=== PATIENT | male | born 2000 | race Caucasian/White ===

== ENCOUNTER 2025-03-04 09:22 | Emergency (ER) | payer OTHER, SELFPAY ==
[2025-03-04 09:37] VITALS: BP 149/88; PULSE 133; RESP 12; TEMP 37.4; O2SAT 94; BMI 24.4
--- NOTE | 2025-03-04 09:44 | DI.RAD.S_ITS ---
PROCEDURE: XR CHEST 1V INDICATIONS: cough fever flu TECHNIQUE: One view of the chest was acquired. COMPARISON: None. FINDINGS: Surgical changes and devices: None. Lungs and pleura: Lungs are clear. No pleural effusions or pneumothorax. Mediastinum: Mediastinal contours appear normal. Heart size is normal. Bones and chest wall: No suspicious bony lesions. Overlying soft tissues appear unremarkable. IMPRESSION: No acute cardiopulmonary abnormality is seen. Dictated by: Khang Callejas M.D. on 03/04/2025 at 10:09 Approved by: Khang Callejas M.D. on 03/04/2025 at 10:09
[2025-03-04] MEDS: SODIUM CHLORIDE 0.9% 1,000 ML 1000 ML IV (09:54)
[2025-03-04 10:02] LABS: Add Manual Diff / Slide Review YES; Hematocrit 39.6 % (41-53); Hemoglobin 13.8 g/dL (13.5-17.5); Mean Corpuscular HGB Conc 35.0 % (30-36); Mean Corpuscular Hemoglobin 29.4 PG (26-34); Mean Corpuscular Volume 84.0 fL (80-100); Platelet Count 307 X10^3/uL (150-400)
[2025-03-04 10:15] LABS: Lactate (Lactic Acid) 1.6 mmol/L (0.7-2.1)
[2025-03-04 10:16] LABS: Alanine Aminotransferase 14 IU/L (<50); Albumin 4.6 g/dL (3.5-5.0); Albumin Globulin Ratio 1.2 (1.0-2.8); Alkaline Phosphatase 56 U/L (38-126); Blood Urea Nitrogen 11 mg/dL (9-20); Calcium 8.9 mg/dL (8.4-10.2); Carbon Dioxide 22 mmol/L (22-32); Chloride 103 mmol/L (98-107); Creatine Kinase 50 U/L (55-170); Estimated Glomerular Filt Rate > 60 mL/min (>60); Globulin 3.7 g/dL (1.7-4.1); Glucose 117 mg/dL (70-99); HEMOLYSIS 18 (0-50); Potassium 3.5 mmol/L (3.4-5.1); Sodium 140 mmol/L (137-145); Total Protein 8.3 g/dL (6.3-8.2)
[2025-03-04 10:26] VITALS: PULSE 103
[2025-03-04 10:36] LABS: Influenza A - CEPHEID Flu A POSITIVE (NEGATIVE); Influenza B - CEPHEID Flu B NEGATIVE (NEGATIVE)
[2025-03-04 10:38] LABS: COVID-19 CEPHEID 4-PLEX PCR Negative (Negative)
[2025-03-04 11:23] LABS: Band Neutrophils Percent 2.0 % (3-7); Basophils Percent Manual 1.0 % (0-1); Eosinophils Percent Manual 1.0 % (2-4); Lymphocytes Percent Manual 14.0 % (25-45); Monocytes Percent Manual 9.0 % (2-11); Neutrophils Absolute Manual 5175 /uL (3000-5900); RBC Morphology Normal Morphology; Segmented Neutrophils Percent 73.0 % (38-70); Total Cells Counted 100
[2025-03-04] MEDS: KETOROLAC 30 MG/ML VIAL IV (11:28)
--- NOTE | 2025-03-04 11:30 | ED.URI ---
HPI - URI/Sore Throat General Chief Complaint: Fever Stated Complaint: Flu for 3 day- temp 103 Time Seen by Provider: 03/04/25 09:44 Source: patient Mode of arrival: Ambulatory History of Present Illness HPI Narrative: Patient is a healthy 25-year-old male presenting today with a fever. He reports that his roommate tested positive for the flu. He has had 3 days of headache sore throat fever and some nausea. No diarrhea no significant shortness of breath or cough. He was worried because his temp at home today was 103. He took Tylenol at home but wanted to come in to be sure. He is noted to be tachycardic but not hypotensive or hypoxic. Related Data Allergies Allergy/AdvReac Type Severity Reaction Status Date / Time No Known Drug Allergies Allergy Verified 03/04/25 09:37 Patient History Social History Smoking Status: Never smoker Smoking Status: Never smoker Exam Initial Vital Signs Initial Vital Signs: Vital Signs Temperature 99.3 F 03/04/25 09:37 Pulse Rate 133 H 03/04/25 09:37 Respiratory Rate 12 03/04/25 09:37 Blood Pressure 149/88 H 03/04/25 09:37 Pulse Oximetry 94 03/04/25 09:37 Oxygen Delivery Method Room Air 03/04/25 09:37 GENERAL: Alert pleasant well-appearing 25-year-old male and in no acute distress. HEENT: Head atraumatic,EOMI, pupils reactive, face symmetric, moist mucous membranes CARDIOVASCULAR: Regular rate and rhythm without murmurs, rubs or gallops. RESPIRATORY: Breath sounds equal bilaterally, no wheezes rales or rhonchi. ABDOMEN: Soft, nontender. Normoactive bowel sounds all 4 quadrants. No guarding or rebound. EXTREMITIES: Normal range of motion, no clubbing or edema. Neurovascularly intact NEUROLOGICAL: Alert and oriented x4.Normal gait and speech. Cranial nerves II through XII grossly intact. SKIN: Warm, dry, no laceration, no petechiae, no rashes or lesions. Course Orders Ordered: ED Orders 03/04/25 09:44 Chest [XR chest 1V] Stat 03/04/25 09:45 Covid-19 + FLU A/B + RSV - PCR Stat 03/04/25 09:50 CBC Auto Diff [Complete Blood Count AUTO DIFF] Stat CMP [Comprehensive Metabolic Panel] Stat CPK [Creatine Kinase] Stat Lactate (Lactic Acid) Stat Discontinued Medications Sodium Chloride (Normal Saline 0.9%) 1,000 mls @ 1,000 mls/hr IV BOLUS ONE Stop: 03/04/25 10:43 Last Infusion: 03/04/25 11:28 Dose: Infused Documented By: Admin: 03/04/25 09:54 Dose: 1,000 mls/hr Documented By: DANIEL Ketorolac Tromethamine (Ketorolac 30 Mg/Ml Vial) 30 mg IV NOW ONE Stop: 03/04/25 11:15 Last Admin: 03/04/25 11:28 Dose: 30 mg Documented By: WANDA Vital Signs Vital signs: Vital Signs - 8 hr 03/04/25 09:37 03/04/25 10:26 03/04/25 11:55 Temperature 99.3 F 99.8 F H Pulse Rate 133 H 103 H 110 H Respiratory Rate 12 12 Blood Pressure 149/88 H 133/64 Pulse Oximetry 94 95 Oxygen Delivery Method Room Air Room Air MDM - URI/Sore Throat Lab Data 03/04/25 09:50 03/04/25 09:50 Labs: Lab Results 03/04/25 03/04/25 Range/Units 09:45 09:50 WBC 6.9 (4.5-11.0) X10^3/uL RBC 4.71 (4.5-5.9) X10^6/uL Hgb 13.8 (13.5-17.5) g/dL Hct 39.6 L (41-53) % MCV 84.0 (80-100) fL MCH 29.4 (26-34) PG MCHC 35.0 (30-36) % RDW 13.2 (11.6-14.8) % Plt Count 307 (150-400) X10^3/uL Neut % (Auto) Not Reportable Lymph % (Auto) Not Reportable [place] % (Auto) Not Reportable Eos % (Auto) Not Reportable Baso % (Auto) Not Reportable Lymph # (Auto) Not Reportable [place] # (Auto) Not Reportable Baso # (Auto) Not Reportable Total Counted 100 Seg Neutrophils % 73.0 H (38-70) % Band Neutrophils % 2.0 L (3-7) % Lymphocytes % (Manual) 14.0 L (25-45) % Monocytes % (Manual) 9.0 (2-11) % Eosinophils % (Manual) 1.0 L (2-4) % Basophils % (Manual) 1.0 (0-1) % Neutrophils # (Manual) 5175 (6125-9378) /uL RBC Morphology Normal morphology Sodium 140 (137-145) mmol/L Potassium 3.5 (3.4-5.1) mmol/L Chloride 103 (98-107) mmol/L Carbon Dioxide 22 (22-32) mmol/L BUN 11 (9-20) mg/dL Creatinine 1.27 H (0.66-1.25) mg/dL Estimated GFR > 60 (>60) mL/min BUN/Creatinine Ratio 8.7 (6-22) Glucose 117 H (70-99) mg/dL Lactate 1.6 (0.7-2.1) mmol/L Calcium 8.9 (8.4-10.2) mg/dL Total Bilirubin 0.4 (0.2-1.3) mg/dL AST 31 (17-59) IU/L ALT 14 (<50) IU/L Alkaline Phosphatase 56 (38-126) U/L Total Creatine Kinase 50 L (55-170) U/L Total Protein 8.3 H (6.3-8.2) g/dL Albumin 4.6 (3.5-5.0) g/dL Globulin 3.7 (1.7-4.1) g/dL Albumin/Globulin Ratio 1.2 (1.0-2.8) SARS-CoV-2 (PCR) Negative (Negative) Influenza A (RT-PCR) Flu a positive H (NEGATIVE) Influenza B (RT-PCR) Flu b negative (NEGATIVE) RSV (PCR) Negative (Negative) Imaging Data Chest x-ray: Radiologist's Impression: PROCEDURE: XR CHEST 1V INDICATIONS: cough fever flu TECHNIQUE: One view of the chest was acquired. COMPARISON: None. FINDINGS: Surgical changes and devices: None. Lungs and pleura: Lungs are clear. No pleural effusions or pneumothorax. Mediastinum: Mediastinal contours appear normal. Heart size is normal. Bones and chest wall: No suspicious bony lesions. Overlying soft tissues appear unremarkable. IMPRESSION: No acute cardiopulmonary abnormality is seen. Dictated by: Khang Callejas M.D. on 03/04/2025 at 10:09 [facility] Narrative Medical decision making narrative: Patient is a 25-year-old healthy male presenting today with a fever body aches and tachycardia. Roommate has a positive for influenza A. Blood work has been reviewed Positive for influenza A CBC no leukocytosis no anemia CMP within normal limits glucose 117 lactate 1.6 Chest x-ray no acute cardiopulmonary Given Toradol and 1 L of fluids At this time patient is positive for influenza A no evidence of sepsis or concurrent pneumonia. X-ray is clear. He overall appears well but nontoxic. Discussion with him about home care. Discharge Plan Departure Patient Disposition: Home Clinical Impression: Influenza A Instructions: Influenza Activity Restrictions/Additional Instructions: *You have been diagnosed with influenza a *What to do: At this time increase fluids as tolerated recommend Gatorade or Gatorade like products Hopefully start feeling better soon but this can last up to 7-10 *Continue to take medications as directed Tylenol 1000 mg every 6 hours for [id number] pain or fever Motrin 600 mg every 6 hours for [id number] pain *Follow up with your primary care provider in 2-3 days or call [phone] *Return to ER if you should have not tolerating fluids increasing chest pain shortness of breath or any new, worsening or concerning symptoms Stand Alone Forms: Patient Portal/API
[2025-03-04 11:55] VITALS: BP 133/64; PULSE 110; RESP 12; TEMP 37.7; O2SAT 95
== END 2025-03-04 11:56 | disposition home or self-care (01) ==
PROVIDERS: Emergency Provider Emergency Medicine
DX: J10.1 Influenza due to other identified influenza virus with other respiratory manifestations (principal); R51.9 Headache, unspecified; R11.0 Nausea; R05.9 Cough, unspecified
CPT/HCPCS: 36415; 71045; 80053; 82550; 83605; 85007; 85025; 87637; 96361; 96374; 99284; J1885; J7030